=== PATIENT | male | born 1965 | race African-American/Black ===

== ENCOUNTER 2016-12-21 16:44 | Emergency (ER) | payer OTHER ==
[2016-12-21 16:56] VITALS: PULSE 62; RESP 16
--- NOTE | 2016-12-21 17:27 | EDPHY ---
H & P Stated Complaint: crush injury to fingers on L hand Time Seen by Provider: 12/21/16 17:08 HPI/ROS: CHIEF COMPLAINT: crush injury left hand HISTORY OF PRESENT ILLNESS: 51-year-old male presents to the emergency department with left index and middle finger pain after a belt of a car under pressure released and crushed his left index and middle finger against gear today at work. Pt is unsure of his tetanus status. He is right hand dominant. No other complaints. Pain is moderate in nature, worse with movement. Source: Patient Exam Limitations: No limitations - Personal History Current Tetanus/Diphtheria Vaccine: Unsure Current Tetanus Diphtheria and Acellular Pertussis (TDAP): Unsure - Medical/Surgical History Hx Asthma: No Hx Chronic Respiratory Disease: No Hx Diabetes: No Hx Cardiac Disease: No Hx Renal Disease: No Hx Cirrhosis: No Hx Alcoholism: No Hx HIV/AIDS: No Hx Splenectomy or Spleen Trauma: No - Family History Significant Family History: No pertinent family hx - Social History Smoking Status: Never smoked Alcohol Use: None Drug Use: None - Physical Exam Exam: GEN: Awake, alert, oriented, no acute distress RESP: nl resp effort MSK: Left index and middle fingers with full range of motion at MCP and PIP joint, DIP joint not tested due to pain. Patient with subungual hematomas to both index and middle fingernails, superficial abrasion just proximal to fingernail on dorsal aspect of left index finger, cap refill less than 2 seconds. SKIN: superficial abrasion to distal, dorsal aspect of left index finger Constitutional: Initial Vital Signs Temperature (C) 36.9 C 12/21/16 16:53 Heart Rate 62 12/21/16 16:53 Respiratory Rate 16 12/21/16 16:53 Blood Pressure 146/84 H 12/21/16 16:53 O2 Sat (%) 97 12/21/16 16:53 O2 Delivery Mode Room Air Allergies/Adverse Reactions: No Known Allergies Allergy (Unverified 12/21/16 16:55) Home Medications: Medication Instructions Recorded Hydrocodone/APAP 5/325 [[place] 1 tab PO Q4H PRN #7 tab 12/21/16 5/325] Medical Decision Making - Diagnostics Imaging Results: Imaging Impressions Finger X-Ray 12/21/16 16:56 Impression: Acute third finger distal tuft fracture. Procedures: Finger nail trephination index and middle- Index and middle finger on left hand anesthetized with a digital block using 1% lidocaine without epinephrine mixed with 0.5% Marcaine without epinephrine, good anesthesia was obtained. Fingernails were cleaned well with chlorhexidine, the nails were trephinated with a cautery device, patient tolerated this well, bright red blood in return. Patient was placed in a dressing and his fingers were splinted. - Data Points Medications Given: Discontinued Medications Diphtheria/Tetanus/Acell Pertussis (Boostrix) 0.5 ml IM .ONCE ONE Stop: 12/21/16 17:44 Last Admin: 12/21/16 18:01 Dose: 0.5 ml Departure - Departure Disposition: Home, Routine, Self-Care Clinical Impression: Crushing injury of left index finger, initial encounter Qualifiers: Encounter type: initial encounter Qualified Code(s): S67.191A - Crushing injury of left index finger, initial encounter Crushing injury of left middle finger, initial encounter Qualifiers: Encounter type: initial encounter Qualified Code(s): S67.193A - Crushing injury of left middle finger, initial encounter Closed fracture of tuft of distal phalanx of finger Qualifiers: Encounter type: initial encounter Qualified Code(s): S62.639A - Displaced fracture of distal phalanx of unspecified finger, initial encounter for closed fracture Condition: Good Instructions: Subungual Hematoma (ED), Finger Fracture (ED) Additional Instructions: Rest, ice, elevate, take 600 mg of ibuprofen every 8 hours with food for 3-5 days. Take [place] for severe pain. Follow up with the hand doctor listed in the next 5-7 days for re-evaluation, call tomorrow to schedule this appointment. Wear finger splint until your follow-up appointment. 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
[2016-12-21] MEDS ORDERED: TDAP ADULT 0.5 ML INJ (BOOSTRIX) IM ONE (17:43)
[2016-12-21 18:56] VITALS: BP 143/95; TEMP 98.1; O2SAT 95
== END 2016-12-21 18:54 | disposition home or self-care (01) ==
PROC: 0HTQXZZ Resection of Finger Nail, External Approach (ICD-10-PCS; principal; 2016-12-21)
DX: S62.633A Displaced fracture of distal phalanx of left middle finger, initial encounter for closed fracture (principal); S67.191A Crushing injury of left index finger, initial encounter; S67.193A Crushing injury of left middle finger, initial encounter; Z23 Encounter for immunization; W23.0XXA Caught, crushed, jammed, or pinched between moving objects, initial encounter; Y92.69 Other specified industrial and construction area as the place of occurrence of the external cause; Y99.0 Civilian activity done for income or pay; Y93.89 Activity, other specified
CPT/HCPCS: L3925